=== PATIENT | male | born 1975 | race Caucasian/White ===

== ENCOUNTER 2022-12-31 20:27 | Emergency (ER) | payer MEDICARE, SELFPAY ==
[2022-12-31 20:28] VITALS: BP 143/93; PULSE 95; RESP 16; TEMP 36.8; O2SAT 96; BMI 32.0
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
[2022-12-31 23:59] VITALS: BP 143/93; PULSE 95; RESP 16; O2SAT 96
== END 2023-01-01 00:01 ==
PROVIDERS: Emergency Provider Emergency Medicine; Visit Provider Emergency Medicine
DX: S60.222A Contusion of left hand, initial encounter (principal); I10 Essential (primary) hypertension; F17.210 Nicotine dependence, cigarettes, uncomplicated; S60.221A Contusion of right hand, initial encounter; V43.52XA Car driver injured in collision with other type car in traffic accident, initial encounter
CPT/HCPCS: 70450; 72125; 99284